=== PATIENT | female | born 2000 | race Caucasian/White ===

== ENCOUNTER 2023-08-29 18:04 | Emergency (ER) | payer MEDICAID, OTHER ==
[~2023-08-29] VITALS: Ht 175.3 cm; Wt 85.3 kg
[2023-08-29 18:34] VITALS: BP 127/74; PULSE 116; RESP 16; TEMP 97; O2SAT 97
[2023-08-29] MEDS ORDERED: KETOROLAC TROMETH 60MG/2ML VIAL IM ONE (19:00)
== END 2023-08-29 19:26 | disposition home or self-care (01) ==
LOC: ER 18:04
DX: S63.502A Unspecified sprain of left wrist, initial encounter (principal); E11.9 Type 2 diabetes mellitus without complications; W18.39XA Other fall on same level, initial encounter; Y93.89 Activity, other specified; Y92.89 Other specified places as the place of occurrence of the external cause; Y99.8 Other external cause status
CPT/HCPCS: 73110; 73130; 96372; 99284; J1885